=== PATIENT | female | born 1990 | race African-American/Black ===

== ENCOUNTER 2018-04-30 14:59 | Emergency (ER) | payer BC, OTHER ==
[~2018-04-30] VITALS: Ht 167.6 cm; Wt 59.0 kg
[2018-04-30 14:59] VITALS: BP 106/73
== END 2018-04-30 16:25 | disposition home or self-care (01) ==
LOC: ER 15:01
DX: L02.32 Furuncle of buttock (principal); Z60.2 Problems related to living alone
CPT/HCPCS: 84703-TC; A4606; Z7610